=== PATIENT | male | born 1965 | race Caucasian/White ===

== ENCOUNTER 2016-06-17 08:55 | Day surgery (SDC) | payer BC ==
[~2016-06-17 08:55] MED LIST: LIDOCAINE W/ SODIUM BICARB 0.5 ML SYR ONE; Lactated Ringers 1,000 ML PRIMARY IV ONE; fentaNYL Inj 100 MCG/2 ML VIAL ONE
--- NOTE | 2016-06-17 10:35 | GEN.OPNOTE ---
Colonoscopy Procedure Note Surgery Date: 06/17/16 Preoperative Diagnosis: Screening colonoscopy Postoperative Diagnosis: Colon polyp at 80 cm Procedure: Colonoscopy with snare polypectomy Surgeon: Hero Bolivar MD Anesthesia Provider: Trung Mixon CRNA Anesthesia Type: MAC Indications: Colon cancer screening Findings: Prep : Excellent Cecum : video colonoscopy scope inserted all way to cecum. Ileocecal valve identified along with appendiceal orifice. Patient had normal-appearing: Ascending : Ascending colons had a small sessile polyp easily removed with snare polypectomy at 80 cm. Transverse : Transverse colon within normal limits Sigmoid : Descending colon free from disease sigmoid colon had diverticulum Rectum : Rectum free from disease Digital Rectal Exam : No rectal masses A lubricated flexible colonoscope was inserted and passed to the blind end of the cecum.
[2016-06-17 12:18] VITALS: RESP 16
[2016-06-17 12:19] VITALS: TEMP 98
== END 2016-06-17 11:00 | disposition home or self-care (01) ==
LOC: SDSC 08:55
PROVIDERS: ATTEND Surgery
DX: Z12.11 Encounter for screening for malignant neoplasm of colon (principal); Z80.0 Family history of malignant neoplasm of digestive organs; K63.5 Polyp of colon
CPT/HCPCS: 45385; J2704; J3010; J7120